=== PATIENT | female | born 1965 | race Caucasian/White ===

== ENCOUNTER 2021-02-26 12:30 | Emergency (ER) | payer OTHER ==
[~2021-02-26 12:30] MED LIST: ADULT LOW DOSE81 MG PO; APIDRA SOL100 UNIT/1 SQ; BASAGLAR SC; FISH OIL 1,0001 EACH PO; IBUPROFEN800 MG PO; JANUVIA100 MG PO; METOPROLOL TART25 MG PO; NORCO 7.5-3251 EACH PO; NOVOLOG100 UNIT/1 SQ
[2021-02-26 13:30] LABS: RED BLOOD COUNT 5.02 M/UL (4.00-5.10); WHITE BLOOD COUNT 10.6 K/UL (4.5-11.0)
[2021-02-26 13:49] LABS: BUN/CREATININE RATIO 28 (0-10)
== END 2021-02-26 16:17 | disposition home or self-care (01) ==
LOC: ER1 12:30
PROVIDERS: Physician Assistant
DX: R07.9 Chest pain, unspecified (principal); E11.9 Type 2 diabetes mellitus without complications; I10 Essential (primary) hypertension; V49.40XA Driver injured in collision with unspecified motor vehicles in traffic accident, initial encounter; Y92.410 Unspecified street and highway as the place of occurrence of the external cause
CPT/HCPCS: 71045; 80053; 82550; 82553; 83874; 84484; 85025; 99285

== ENCOUNTER → 2021-07-09 | Outpatient (CLI) | payer OTHER | LOC: KOH-I 16:21 | DX: M79.671 Pain in right foot (principal); M25.571 Pain in right ankle and joints of right foot; M19.071 Primary osteoarthritis, right ankle and foot | CPT/HCPCS: 73610; 73630 ==